=== PATIENT | female | born 1980 | race Caucasian/White ===

== ENCOUNTER → 2020-11-04 08:20 | Outpatient (CLI) | payer OTHER, SELFPAY ==
[2020-11-04] MEDS: COVID-19 VACC #1, MRNA(MOD) 100 MCG/0.5 ML VIAL IM (08:28)
== END ==
PROVIDERS: Visit Provider Internal Medicine
DX: Z23 Encounter for immunization (principal)
CPT/HCPCS: 0011A; 91301

== ENCOUNTER → 2020-12-03 08:28 | Outpatient (CLI) | payer OTHER, SELFPAY ==
[2020-12-03] MEDS: COVID-19 VACC #2, MRNA(MOD) 100 MCG/0.5 ML VIAL IM (08:39)
== END ==
PROVIDERS: Visit Provider Internal Medicine
DX: Z23 Encounter for immunization (principal)
CPT/HCPCS: 0012A; 91301

== ENCOUNTER 2023-10-25 07:55 | Emergency (ER) | payer OTHER, SELFPAY ==
[2023-10-25 08:04] VITALS: BP 187/130; PULSE 89; RESP 18; TEMP 37.1; O2SAT 99; BMI 26.4
--- NOTE | 2023-10-25 08:26 | ED_ITS ---
HPI - Female Genitourinary General Chief complaint: Urogenital-Female Stated complaint: poss uti/kidney infection per pt Time Seen by Provider: 10/25/23 08:24 Source: patient Mode of arrival: Ambulatory History of Present Illness HPI Narrative: 43-year-old female with IUD in place history of prior pyelonephritis. Patient states she has symptoms consistent with UTI with dysuria, urgency, frequency with since incomplete emptying. She has had a little bit of suprapubic pain. She states some aching up in her upper back but not severe. She denies fevers or chills. She felt nauseated. She states pain kept her up overnight. Denies any issues with bowel movements. Noticed a little bit of change in consistency and color of her vaginal discharge. States odor is a little bit different. Patient states does have a new sexual partner so has had recent STI testing but would like testing for this as well. Related Data Home Medications Medication Instructions Recorded Confirmed fluoxetine 20 mg capsule (Prozac) 20 mg PO DAILY 02/09/18 02/09/18 norgestimate 0.25 mg-ethinyl 1 tab PO DAILY 02/09/18 02/09/18 estradiol 35 mcg tablet (Ortho-Cyclen (28)) Previous Rx's Medication Instructions Recorded levofloxacin 500 mg tablet 500 mg PO DAILY 5 days #5 tabs 10/25/23 phenazopyridine 100 mg tablet 100 mg PO TID PRN pain #5 tabs 10/25/23 (Pyridium) Allergies Allergy/AdvReac Type Severity Reaction Status Date / Time NSAIDS (Non-Steroidal Allergy Severe RENAL Verified 02/09/18 13:10 Anti-Inflamma FAILURE Review of Systems Review of Systems ROS Unobtainable: All systems reviewed & are unremarkable except as noted in HPI and below Patient History tobacco type: vaping alcohol intake frequency: a few times a week Substance Use Type: does not use Exam Narrative Exam Narrative: GENERAL: Well-appearing female, Alert and oriented x three, mild distress. HEENT: Head normocephalic, atraumatic, EOMI, pupils reactive, face symmetric, moist mucous membranes NECK: Supple, full range of motion CARDIOVASCULAR: Regular rate and rhythm without murmurs, rubs or gallops. RESPIRATORY: Breath sounds equal bilaterally, no wheezes rales or rhonchi. ABDOMEN: Soft, nontender. Normoactive bowel sounds all 4 quadrants. No guarding or rebound, rigidity, no mass : No CVA tenderness bilaterally. EXTREMITIES: Normal range of motion, no clubbing or edema. Neurovascularly intact NEUROLOGICAL: Cranial nerves II through XII grossly intact. Moving all extremities SKIN: Warm, dry, no petechiae, no rashes or lesions. Initial Vital Signs Initial Vital Signs: Vital Signs Temperature 98.7 F 10/25/23 08:04 Pulse Rate 89 10/25/23 08:04 Respiratory Rate 18 10/25/23 08:04 Blood Pressure 187/130 H 10/25/23 08:04 Pulse Oximetry 99 10/25/23 08:04 Oxygen Delivery Method Room Air 10/25/23 08:04 Course Orders Ordered: Discontinued Medications Levofloxacin (Levofloxacin 250 Mg Tablet) 500 mg PO NOW ONE Stop: 10/25/23 09:05 Last Admin: 10/25/23 09:24 Dose: 500 mg Documented By: DANIELLE Ondansetron HCl (Ondansetron 4 Mg/2 Ml Inj) 4 mg IV NOW PRN PRN Reason: Nausea And Vomiting Ondansetron HCl (Ondansetron 4 Mg Odt) 4 mg SL NOW PRN PRN Reason: Nausea And Vomiting Phenazopyridine HCl (Phenazopyridine 100 Mg Tablet) 100 mg PO NOW ONE Stop: 10/25/23 09:05 Last Admin: 10/25/23 09:24 Dose: 100 mg Documented By: DANIELLE Vital Signs Vital signs: Vital Signs - 8 hr 10/25/23 08:04 Temperature 98.7 F Pulse Rate 89 Respiratory Rate 18 Blood Pressure 187/130 H Pulse Oximetry 99 Oxygen Delivery Method Room Air MDM - Female Genitourinary Lab Data Labs: Lab Results 10/25/23 10/25/23 Range/Units 08:15 08:30 Urine RBC 1-5/hpf (0-5/HPF) Urine WBC 5-10/hpf H (0-5/HPF) Ur Squamous Epith Cells 0-1 /hpf (0-5/HPF) Urine Bacteria None seen (None) Ur Culture Indicated? Specimen cultured Vol Urine Centrifuged 10ml (spun) Ur Chlamydia DNA (PCR) Not detected N gonorrhoeae DNA (PCR) Not detected Point of Care Testing Test Results Negative Urine Dip Bedside Urine Glucose Negative Bedside Urine Bilirubin - Negative Bedside Urine Ketone - Negative Urine Specific [place] 1.010 Bedside Urine Occult Blood +/- Bedside Urine pH 7.0 Bedside Urine Protein - Negative Bedside Urine Urobilinogen - Negative Bedside Urine Nitrite - Negative Bedside Urine Leukocytes +++ 500 Esterase MDM Narrative Medical decision making narrative: 43-year-old female with symptoms consistent with UTI, urine does show positive leuks, no nitrates. Symptoms seem consistent with UTI patient did have concern for potential STI. She states no concern for herpes virus, is open to urine GC testing, wet prep and genital culture. Discussed pelvic exam but she defers and prefers to self swab. Wet prep is positive for occasional white cell, no clue cells, yeast or Trichomonas. Genital culture is pending. Discussed with patient she would prefer to discharge home and follow up her results, urine GC take several hours to return and she is trying to return home to [place]. Discussed can cover her coverage with a shot Rocephin azithromycin as well as her UTI. Patient feels she is fairly low risk but states she will return if she needs IM antibiotics, discussed that she should call back by noon if she has not heard from me. Discussed that genital culture will still be pending for several days and if this results with other changes she would be contacted. Discharge Plan Departure Patient Disposition: Home Clinical Impression: Urinary tract infection Activity Restrictions/Additional Instructions: Your urine GC testing is still pending we will result in the next 2-3 hours. Please call if you have not heard back from me by noon today for your results. If this is positive you would have to return for antibiotics. The genital culture takes about 48-72 hours to result. If the antibiotic prescribed does not cover for infection we would contact you. Take antibiotics until completed. Prescription sent to [facility]. Please return for fevers new or worsening abdominal back or flank pain, any vomiting, lightheadedness or passing out or other new or concerning changes. Prescriptions: New levofloxacin 500 mg tablet 500 mg PO DAILY 5 Days Qty: 5 0RF phenazopyridine [Pyridium] 100 mg tablet 100 mg PO TID PRN (Reason: pain) Qty: 5 0RF No Action norgestimate-ethinyl estradiol [Ortho-Cyclen (28)] 0.25-35 mg-mcg tablet 1 tab PO DAILY fluoxetine [Prozac] 20 mg capsule 20 mg PO DAILY Stand Alone Forms: Patient Portal/API
[2023-10-25 08:31] LABS: Urine Volume 10mL (spun)
[2023-10-25 08:34] LABS: Bacteria Urine None Seen; Culture Indicated Urine Specimen Cultured; RBC Urine 1-5/HPF (0-5/HPF); Squamous Epithelial Cell Urine 0-1 /HPF (0-5/HPF); WBC Urine 5-10/HPF (0-5/HPF)
[2023-10-25] MEDS: PHENAZOPYRIDINE 100 MG TABLET PO (09:24)
[2023-10-25] MEDS: levoFLOXacin 250 MG TABLET 500 MG PO (09:24)
[2023-10-25 10:04] LABS: Urine N gonorrhoeae NOT DETECTED
[2023-10-25 10:05] LABS: Urine Chlamydia NOT DETECTED
== END 2023-10-25 09:30 | disposition home or self-care (01) ==
PROVIDERS: Emergency Provider Emergency Medicine
DX: N39.0 Urinary tract infection, site not specified (principal)
CPT/HCPCS: 81003; 81015; 81025; 87070; 87077; 87086; 87147; 87186; 87205; 87210; 87491; 87591; 99283